=== PATIENT | female | born 1995 | race Caucasian/White ===

== ENCOUNTER 2021-01-25 08:00 | Outpatient (CLI) | payer BC, MEDICAID ==
[2021-01-25 20:38] LABS: BACTERIAL VAGINOSIS DNA NEGATIVE (NEGATIVE); CANDIDA GLABRATA DNA NEGATIVE (NEGATIVE); CANDIDA GROUP DNA POSITIVE (NEGATIVE); CANDIDA KRUSEI DNA NEGATIVE (NEGATIVE); TRICHOMONAS VAGINALIS DNA NEGATIVE (NEGATIVE)
[2021-01-25 21:21] LABS: CHLAMYDIA TRACHOMATIS DNA NEGATIVE (NEGATIVE); NEISSERIA GONORRHOEAE DNA NEGATIVE (NEGATIVE); TRICHOMONAS VAGINALIS DNA NEGATIVE (NEGATIVE)
== END 2021-01-25 23:59 | disposition home or self-care (01) ==
LOC: LAB.WC 08:00
PROVIDERS: ATTEND Nurse Practitioner Obstetrics & Gynecology
DX: N89.8 Other specified noninflammatory disorders of vagina (principal)
CPT/HCPCS: 87491; 87591; 87661; 87801

== ENCOUNTER 2021-12-11 16:43 | Outpatient (CLI) | payer MEDICAID ==
--- NOTE | 2021-12-12 08:56 | XRAY Report ---
PROCEDURE: Lumbar Spine 2 View INDICATIONS: SCIATICA TECHNIQUE: 2 views of the lumbar spine were acquired. COMPARISON: None. FINDINGS: Bones: 5 [id number] vertebrae are present. Mild degenerative endplate changes are seen from T1 1 through L3 with multiple small Schmorl's nodes. There is disc space narrowing at T11-12, T12-L1, an d L1-2 consistent with disc disease at these levels. No focal osseous lesions. There is normal bony a lignment. No vertebral body compression fractures. No suspicious bony lesions. Soft tissues: Overlying bowel gas pattern is normal. No suspicious soft tissue calcifications. IMPRESSION: Endplate degenerative changes and multiple Schmorl's nodes from T11 through L3. Early Sc heuermann disease could be considered, however there is no vertebral body wedging or kyphosis at this time. Reviewed by: Landon Jimenez on 12/12/2021 8:55 AM PDT Approved by: Landon Jimenez on 12/12/2021 8:55 AM PDT Station ID: [id number]
== END 2021-12-11 23:59 | disposition home or self-care (01) ==
LOC: DI.N 16:43
PROVIDERS: ATTEND Nurse Practitioner
DX: M54.30 Sciatica, unspecified side (principal); M47.814 Spondylosis without myelopathy or radiculopathy, thoracic region; M47.816 Spondylosis without myelopathy or radiculopathy, lumbar region; M51.44 Schmorl's nodes, thoracic region; M51.46 Schmorl's nodes, lumbar region

== ENCOUNTER 2023-07-30 08:14 | Outpatient (CLI) | payer OTHER, MEDICAID ==
--- NOTE | 2023-07-30 10:30 | XRAY Report ---
PROCEDURE: Knee 4 View RT INDICATIONS: RIGHT KNEE PAIN TECHNIQUE: 4 views of the knee(s) were acquired. COMPARISON: None. FINDINGS: Bones: A sliver of bone superior to the medial tibial spine is concerning for an avulsion fracture. N o other fractures or dislocations. No suspicious bony lesions. Soft tissues: No knee joint effusion. No suspicious soft tissue calcifications or masses. IMPRESSION: Possible avulsion fracture of the medial tibial spine (ACL insertion), however no joint effusion is i dentified which would be expected if this was acute. Consider MRI. Reviewed by: Landon Jimenez on 07/30/2023 9:29 AM [facility] Approved by: Landon Jimenez on 07/30/2023 9:29 AM [facility] Station ID: [id number]
== END 2023-07-30 23:59 | disposition home or self-care (01) ==
LOC: DI.WOS 08:14
PROVIDERS: ATTEND Physician Assistant Surgical
DX: M23.91 Unspecified internal derangement of right knee (principal)

== ENCOUNTER 2023-10-31 14:15 | Outpatient (CLI) | payer MEDICAID, OTHER ==
--- NOTE | 2023-11-02 11:06 | MRI Report ---
PROCEDURE: Knee RT WO INDICATIONS: INTERNAL DERANGEMENT R KNEE TECHNIQUE: Noncontrast sagittal PD fast spin echo and T2 fast spin echo with fat saturation, sagittal 3-D gradie nt sequence with fat saturation; coronal T1 spin echo and PD fast spin echo with fat saturation, and axial PD fast spin echo with fat saturation through the knee. COMPARISON: 07/30/2023 FINDINGS: Image quality: Excellent. Menisci: The medial and lateral menisci demonstrate normal morphology and internal signal. The meni scal root ligaments appear intact. Cruciate ligaments: The anterior and posterior cruciate ligaments appear intact. Medial structures: The medial collateral ligament appears intact. Visualized portions of the pes an serinus tendons appear normal. No abnormal bursal fluid. Lateral structures: The lateral collateral ligament, long and short heads of the biceps femoris tend on appear intact. The popliteus tendon appears normal. Iliotibial band appears normal. Anterior structures: There is low-grade tearing of the quadriceps tendon at the patellar insertion si te. Patellar tendon is intact. Patellar alignment is normal. No femoral trochlear dysplasia or ventr al trochlear prominence. No edema in the infrapatellar fat pad. Bones and cartilage: No bone marrow contusions or fractures. Mild to moderate articular cartilage lo ss overlies the patellar apex. Joint space: There is physiologic knee joint fluid. No Cuello's cyst. Normal appearing synovial pli are incidentally noted. IMPRESSION: 1. No internal derangement. 2. Partial-thickness tearing of the quadriceps tendon. 3. Patellofemoral compartment articular cartilage loss. Reviewed by: Lou Hunter MD on 11/02/2023 11:04 AM [facility] Approved by: Lou Hunter MD on 11/02/2023 11:04 AM PST Station ID: [id number]
== END 2023-10-31 14:16 | disposition home or self-care (01) ==
LOC: DI 14:15
PROVIDERS: ATTEND Physician Assistant Surgical
DX: S76.111A Strain of right quadriceps muscle, fascia and tendon, initial encounter (principal); M94.261 Chondromalacia, right knee